=== PATIENT | male | born 1965 | race Caucasian/White ===

== ENCOUNTER 2018-09-20 06:46 | Emergency (ER) | payer MEDICAID ==
[~2018-09-20] VITALS: Ht 167.6 cm; Wt 76.1 kg
[2018-09-20 10:40] VITALS: BP 135/80
== END 2018-09-20 10:41 | disposition home or self-care (01) ==
LOC: ER 06:46
DX: Z46.6 Encounter for fitting and adjustment of urinary device (principal)
CPT/HCPCS: 99281

== ENCOUNTER 2018-09-20 15:19 | Emergency (ER) | payer SELFPAY ==
[~2018-09-20] VITALS: Ht 170.2 cm; Wt 75.0 kg
[2018-09-20 15:31] VITALS: BP 149/90
== END 2018-09-20 17:50 | disposition left against medical advice (07) ==
LOC: ER 17:13
DX: R42 Dizziness and giddiness (principal); Z53.21 Procedure and treatment not carried out due to patient leaving prior to being seen by health care provider
CPT/HCPCS: 93005